=== PATIENT | male | born 1965 | race Caucasian/White ===

== ENCOUNTER 2023-08-22 19:35 | Emergency (ER) | payer MEDICAID ==
[~2023-08-22 19:35] MED LIST: OMEP20CA4 PO
== END 2023-08-22 20:00 | disposition left against medical advice (07) ==
LOC: ER 19:35
DX: R07.89 Other chest pain (principal); Z53.21 Procedure and treatment not carried out due to patient leaving prior to being seen by health care provider
CPT/HCPCS: 99281